=== PATIENT | male | born 1955 | race Caucasian/White ===

== ENCOUNTER 2021-06-22 16:38 | Emergency (ER) | payer MEDICARE, SELFPAY ==
[2021-06-22] MEDS ORDERED: Sodium Chloride 0.9% 1,000 ML ONE (17:33)
[2021-06-22] MEDS ORDERED: methylPREDNISolone Sod Succ/PF 125 MG/2 ML VIAL ONE (17:33)
[2021-06-22] MEDS ORDERED: Ketorolac Tromethamine 30 MG/ML VIAL ONE (17:33)
[2021-06-22 17:49] LABS: #Basophils 0.1 thou/uL (0.0-0.2); #Eosinphils 0.1 thou/uL (0.0-0.7); #Lymphocytes 1.5 thou/uL (1.20-3.40); #Monocytes 0.5 thou/uL (0.11-0.59); #Neutrophils 4.2 thou/uL (1.40-6.50); %Eosinophils 0.8 % (0.0-10.0); %Lymphocytes 23.7 % (21.0-51.0); %Monocytes 7.9 % (0.0-10.0); %Neutrophils 66.6 % (42.0-75.0); Hemoglobin 15.2 g/dL (14.0-18.0); Mean Corpuscular HGB CONC 31.1 g/dL (32.0-36.0); Mean Corpuscular Hemoglobin 31.3 pg (27.0-31.0); Mean Platelet Volume 9.1 fL (7.4-10.4); Platelet Count 164 thou/uL (130-400); RBC Distribution Width 11.9 % (11.5-14.5); Red Blood Cell (RBC) Count 4.87 mill/uL (4.70-6.10); White Blood Cell (WBC) Count 6.3 thou/uL (4.8-10.8)
[2021-06-22 17:58] LABS: ALT (SGPT) 44 U/L (8-55); AST (SGOT) 25 U/L (5-34); Albumin 3.8 g/dL (3.4-4.8); Alkaline Phosphatase 75 U/L (40-110); Anion Gap 13 mmol/L (10-20); BUN (Urea Nitrogen) 14 mg/dL (8.4-25.7); CK (CPK) 158 U/L (30-200); Calc. Creatinine Clearance 0 mL/min (70-130); Calcium 9.2 mg/dL (7.8-10.44); Carbon Dioxide 27 mmol/L (23-31); Chloride 106 mmol/L (98-107); Globulin 2.3 g/dL (2.4-3.5); Glucose 72 mg/dL (80-115); Potassium 4.9 mmol/L (3.5-5.1); Protein, Total 6.1 g/dL (5.8-8.1); Sodium 141 mmol/L (136-145)
[2021-06-22] MEDS ORDERED: Amoxicillin/Potassium Clav 500 MG TAB ONE (18:57)
[2021-06-22] MEDS ORDERED: Amoxicillin/Potassium Clav 875 MG TAB ONE (18:58)
== END 2021-06-22 19:08 | disposition home or self-care (01) ==
LOC: NAV ERS 16:38
DX: T78.40XA Allergy, unspecified, initial encounter (principal); M79.89 Other specified soft tissue disorders; L03.115 Cellulitis of right lower limb; I48.91 Unspecified atrial fibrillation; R00.0 Tachycardia, unspecified; F17.220 Nicotine dependence, chewing tobacco, uncomplicated; Z79.899 Other long term (current) drug therapy
CPT/HCPCS: 80053; 82550; 83605; 84443; 84484; 85025; 85379; 93005; 96374; 96375; J1885; J2930; J7050

== ENCOUNTER 2021-08-17 23:22 | Emergency (ER) | payer MEDICARE ==
[2021-08-17 23:50] LABS: #Basophils 0.1 thou/uL (0.0-0.2); #Lymphocytes 1.6 thou/uL (1.20-3.40); #Monocytes 0.7 thou/uL (0.11-0.59); #Neutrophils 8.4 thou/uL (1.40-6.50); %Basophils 1.2 % (0.0-1.0); %Eosinophils 0.1 % (0.0-10.0); %Monocytes 6.5 % (0.0-10.0); %Neutrophils 77.2 % (42.0-75.0); Hemoglobin 15.9 g/dL (14.0-18.0); Mean Corpuscular HGB CONC 32.1 g/dL (32.0-36.0); Mean Corpuscular Hemoglobin 31.8 pg (27.0-31.0); Mean Corpuscular Volume 99.1 fL (78.0-98.0); Mean Platelet Volume 8.7 fL (7.4-10.4); Platelet Count 205 thou/uL (130-400); RBC Distribution Width 12.9 % (11.5-14.5); Red Blood Cell (RBC) Count 4.98 mill/uL (4.70-6.10); White Blood Cell (WBC) Count 10.9 thou/uL (4.8-10.8)
[2021-08-17] MEDS ORDERED: Furosemide 40 MG/4 ML VIAL ONE (23:54)
[2021-08-17 23:55] LABS: INR-International Normal Ratio 1.2; Prothrombin Time 14.9 sec (12.0-14.7)
[2021-08-17 23:56] LABS: PTT 25.9 sec (22.9-36.1)
[2021-08-17 23:59] LABS: ALT (SGPT) 40 U/L (8-55); AST (SGOT) 42 U/L (5-34); Albumin 3.8 g/dL (3.4-4.8); Alkaline Phosphatase 79 U/L (40-110); Anion Gap 14 mmol/L (10-20); BUN (Urea Nitrogen) 28 mg/dL (8.4-25.7); Bilirubin, Total 1.9 mg/dL (0.2-1.2); Calc. Creatinine Clearance 0 mL/min (70-130); Calcium 9.1 mg/dL (7.8-10.44); Carbon Dioxide 23 mmol/L (23-31); Chloride 102 mmol/L (98-107); Globulin 2.5 g/dL (2.4-3.5); Glucose 126 mg/dL (80-115); Potassium 4.4 mmol/L (3.5-5.1); Protein, Total 6.3 g/dL (5.8-8.1); Sodium 135 mmol/L (136-145)
[2021-08-18] MEDS ORDERED: Aspirin Chewable 81 MG TAB ONE (00:07)
[2021-08-18 00:26] LABS: CKMB 17.3 ng/mL (0-6.6)
[2021-08-18 00:43] LABS: SARS-CoV-2 NAA Rapid Test Not Detected (NotDetected)
[2021-08-18] MEDS ORDERED: Ondansetron PF 4 MG/2 ML Vial ONE (01:02)
[2021-08-18] MEDS ORDERED: Enoxaparin Sodium 100 MG/ML SYRINGE ONE (01:30)
== END 2021-08-18 01:55 | disposition short-term general hospital (02) ==
LOC: NAV ERS 23:22
DX: I50.9 Heart failure, unspecified (principal); I48.91 Unspecified atrial fibrillation; R79.1 Abnormal coagulation profile; R74.02 Elevation of levels of lactic acid dehydrogenase [LDH]; R77.8 Other specified abnormalities of plasma proteins; J96.90 Respiratory failure, unspecified, unspecified whether with hypoxia or hypercapnia; F17.220 Nicotine dependence, chewing tobacco, uncomplicated; Z20.822 Contact with and (suspected) exposure to COVID-19
CPT/HCPCS: 71045; 80053; 82274; 82553; 83605; 83735; 83880; 84484; 85025; 85379; 85610; 85730; 93005; 94660; 94760; 96372; 96374; 96375; J1650; J1940; J2405; U0002

== ENCOUNTER 2021-10-15 16:17 | Emergency (ER) | payer MEDICARE ==
[2021-10-15] MEDS ORDERED: Sodium Chloride 0.9% 0 ML ONE (17:25)
[2021-10-15] MEDS ORDERED: Diltiazem 125 MG/25 ML ONE (17:25)
[2021-10-15] MEDS ORDERED: Sodium Chloride 0.9% 100 ML ONE ×2 (17:26→18:27)
[2021-10-15 17:50] LABS: #Basophils 0.2 thou/uL (0.0-0.2); #Lymphocytes 0.7 thou/uL (1.20-3.40); #Monocytes 0.7 thou/uL (0.11-0.59); #Neutrophils 12.4 thou/uL (1.40-6.50); %Basophils 1.3 % (0.0-1.0); %Lymphocytes 5.1 % (21.0-51.0); %Neutrophils 88.6 % (42.0-75.0); Hemoglobin 14.6 g/dL (14.0-18.0); Mean Corpuscular HGB CONC 31.2 g/dL (32.0-36.0); Mean Corpuscular Hemoglobin 31.9 pg (27.0-31.0); Mean Platelet Volume 8.7 fL (7.4-10.4); Platelet Count 138 thou/uL (130-400); RBC Distribution Width 14.5 % (11.5-14.5); Red Blood Cell (RBC) Count 4.57 mill/uL (4.70-6.10)
[2021-10-15 17:53] LABS: ALT (SGPT) 82 U/L (8-55); AST (SGOT) 130 U/L (5-34); Albumin 3.4 g/dL (3.4-4.8); Alkaline Phosphatase 142 U/L (40-110); Anion Gap 18 mmol/L (10-20); BUN (Urea Nitrogen) 39 mg/dL (8.4-25.7); Bilirubin, Total 2.6 mg/dL (0.2-1.2); Calc. Creatinine Clearance 0 mL/min (70-130); Calcium 8.6 mg/dL (7.8-10.44); Carbon Dioxide 17 mmol/L (23-31); Chloride 96 mmol/L (98-107); Glucose 83 mg/dL (80-115); Lipase 83 U/L (8-78); Potassium 6.1 mmol/L (3.5-5.1); Protein, Total 6.4 g/dL (5.8-8.1); Sodium 125 mmol/L (136-145)
[2021-10-15] MEDS ORDERED: Albuterol Sulfate 2.5 mg/0.5 ml Neb ONE (18:13)
[2021-10-15] MEDS ORDERED: Calcium Chloride 1 GM/10 ML Abboject SYRINGE ONE (18:13)
[2021-10-15] MEDS ORDERED: Furosemide 40 MG/4 ML VIAL ONE (18:13)
[2021-10-15 18:20] LABS: Critical Call Chem Troponin I NOT CALLED
[2021-10-15 18:23] LABS: CKMB 32.1 ng/mL (0-6.6)
[2021-10-15 19:13] LABS: INR-International Normal Ratio 1.1; Prothrombin Time 12.5 sec (9.5-12.1)
[2021-10-16 10:04] LABS: SARS-CoV-2 NAA Rapid Test Not Detected (NotDetected)
== END 2021-10-15 20:40 | disposition short-term general hospital (02) ==
LOC: NAV ERS 16:17
DX: I48.91 Unspecified atrial fibrillation (principal); I50.9 Heart failure, unspecified; Z20.822 Contact with and (suspected) exposure to COVID-19; R79.89 Other specified abnormal findings of blood chemistry; F17.290 Nicotine dependence, other tobacco product, uncomplicated
CPT/HCPCS: 71045; 80053; 82553; 83690; 83880; 84484; 85025; 85610; 85730; 93005; 94640; 96374; J1940; J7611; U0002